=== PATIENT | female | born 1970 | race Caucasian/White ===

== ENCOUNTER 2022-10-10 06:28 | Day surgery (SDC) | payer BC, SELFPAY ==
[2022-10-09 13:15] VITALS: BMI 28.7
[2022-10-10] VITALS (8 sets, daily range): BP systolic 108–146; BP diastolic 55–86; PULSE 55–84; RESP 13–23; TEMP 36.1–37.1; O2SAT 93–97
[2022-10-10] MEDS: sodium chloride 0.9% 1,000 ML 30 ML IV (06:54)
--- NOTE | 2022-10-10 07:03 | ANES.PREANE2 ---
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 Operation Date: 10/10/22 07:50 Proposed Procedures p direct laryngoscopy and removal of vocal cord nodule 43391,J38.2(Not Applicable) - Prince Haskins MD Familial anesthetic complications: None Was Beta Kumar taken within 24 hours: N/A Was Clonidine taken within 24 hours: N/A Last intake: Intake Last Liquid Date 10/09/22 Last Liquid Time 21:00 Last Solid Date 10/09/22 Last Solid Time 18:00 Social No alcohol and No tobacco former smoker Exam alert, oriented x 3, clear to auscultation bilaterally and regular rate & rhythm Airway Mallampati: Class I Dentition: chipped (multiple chipped, including front tooth) GI Gastroesophageal Reflux Disease Anesthetic Plan ASA status: 2 Anesthesia: General Risk of > 500 ml blood loss (7ml/kg in children): No Medications/Allergies Home Medications Medication Instructions Recorded Confirmed Last Taken Type dexlansoprazole 30 mg 30 mg PO DAILY 08/27/22 10/10/22 10/10/22 06:00 History capsule,biphase delayed release (Dexilant) fluoxetine 20 mg capsule 20 mg PO DAILY 08/27/22 10/10/22 10/09/22 20:00 History oxybutynin chloride 5 mg tablet 5 mg PO DAILY 08/27/22 10/09/22 10/09/22 07:00 History trazodone 150 mg tablet 150 mg PO DAILY 08/27/22 10/10/22 10/09/22 21:00 History peg 3350-electrolytes 236 240 ml PO Q10M #4,000 mL 08/28/22 10/07/22 Unknown Rx gram-22.74 gram-6.74 gram-5.86 gram solution (Golytely) Allergies Allergy/AdvReac Type Severity Reaction Status Date / Time No Known Allergies Allergy Verified 10/10/22 06:40 Current Medications Generic Name Dose Route Start Last Admin Trade Name Freq PRN Reason Stop Dose Admin Sodium Chloride 1,000 mls @ 30 mls/hr 10/10/22 06:45 10/10/22 06:54 Sodium Chloride 0.9% IV 10/11/22 06:44 30 mls/hr .Q24H ROSEY Administration PFSH Anesthesia Medical History Hx of cataract bilateral and lens implants Surgical History Hx of arthroscopic knee surgery left knee Hx of colonoscopy with polypectomy Family History Mother Cancer colon cancer stage 4 Social History Smoking and tobacco status: former smoker Data Anesthesia Cardiac Studies: No Data to Display
[2022-10-10 07:10] LABS: Basophils # 0.1 10^3/uL (0.0-0.1); Basophils % 1.2 %; Eosinophils # 0.1 10^3/uL (0.0-0.8); Hematocrit 38.6 % (37.0-47.0); Hemoglobin 12.6 g/dL (11.5-15.3); Lymphocytes # 2.2 10^3/uL (0.8-4.8); Lymphocytes % 37.4 %; Mean Corpuscular HGB Conc 32.6 g/dL (30.0-36.0); Mean Corpuscular Hemoglobin 29.5 pg (28.0-34.0); Mean Corpuscular Volume 90.4 fl (81-99); Mean Platelet Volume 9.6 fL (7.4-10.4); Monocytes # 0.6 10^3/uL (0.2-0.9); Monocytes % 10.3 %; Neutrophils # 2.86 10^3/uL (1.8-7.7); Neutrophils % 49.8 %; Nucleated Red Blood Cells % 0 %; Platelet Count 328 10^3/cmm (130-400); Red Blood Count 4.27 10^6/uL (4.1-5.3); Red Cell Distribution Width 13.2 % (12.1-15.1); White Blood Count 5.8 10^3/uL (4.0-10.0)
--- NOTE | 2022-10-10 07:22 | W.PM.OPSUD ---
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
[2022-10-10 07:26] LABS: Anion Gap 12.3 (5-19); Blood Urea Nitrogen 17 mg/dL (6-20); Calcium 9.1 mg/dL (8.5-10.5); Carbon Dioxide 27 mmol/L (22-29); Chloride 107 mmol/L (98-107); Glomerular Filtration Rate 88.2 mL/min (90-130); Glucose 96 mg/dL (65-115); Osmolality Calculated 295 mOsm/kg (285-295); Potassium 4.3 mmol/L (3.5-5.1); Sodium 142 mmol/L (136-145)
[2022-10-10] MEDS: ceFAZolin 2,000 MG in sodium chloride 0.9% (plus) 50 ML 100 MG IV (07:33)
[2022-10-10] MEDS: EPINEPHrine 1 mg/mL INJ XX (07:56)
--- NOTE | 2022-10-10 08:26 | PM.OP ---
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 Only edema of left cord. Procedure done: Direct suspension microscopic laryngoscopy with excision of right true vocal cord nodule/stripping. Implants: No implants Specimens removed/disposition: Right true vocal cord mass and stripping Pathology: Right true vocal cord mass and stripping permanent section only Surgeon: Prince Haskins MD Anesthesia: General Estimated blood loss: 5 mL Complications: No complications encountered Findings: Patient in the office had chronic hoarseness with on flexible laryngoscopy a large right true vocal cord nodule with what appeared to be a smaller left true vocal cord nodule or indentation. Brief History: 52-year-old female patient has had chronic hoarseness for an extended period of time and on flexible laryngoscopy identified to have at least a right true vocal cord nodule which was very sizable. This was interfering with the cords abducting appropriately. Therefore the patient is being brought to the operating room to undergo direct suspension microscopic laryngoscopy and removal of this right cord nodule and if necessary stripping. If there is anything present on the left side that will also be addressed. The procedure its risks and complications were explained in detail. Informed consent was granted. It was also witnessed. Procedure: Description of procedure: The patient was placed on the operating table in the supine position. Adequate general endotracheal tube anesthesia was obtained. A timeout was accomplished identifying the patient date of plan procedure allergies fire risk and medications given. With all in agreement the procedure continued. The table was rotated 90 degrees. The head was dropped 15 degrees to the horizontal. Her eyes were taped shut and head drape was applied in usual fashion. A tooth guard was placed over her upper dentition. A small anterior commissure operating laryngoscope was then placed and suspended from a Parekh stand. Then with the microscope for visualization and manipulation with suction and forceps the right cord nodule was very obvious. It was too hard to even grasp with a classic cup forceps. Therefore using micro curved scissors curved to the left incision was created at the base of this lesion and dissected down. At this point it was obvious that the overlying tissue was not going to separate from this mass and therefore a more classic stripping was accomplished removing all abnormal appearing tissue. The left side was then evaluated and found to just have edema. No actual nodule present on the left side. Hemostasis was attained with cottonoids soaked in 1-1000 epinephrine. Then after removing that and suctioning an LTA was dispensed into the larynx for anesthetic on the cords and to help prevent excessive coughing postoperatively. The patient tolerated the procedure well had an estimated blood loss of 5 mL or less and arrived in recovery in stable condition.
--- NOTE | 2022-10-10 08:48 | SUR.PHASEI ---
0842 PT TO PACU AWAKE ALERT HOB AT 30 DEGREES PT ID BRACELET TO RT WRIST PT ID'D WITH 2 IDENTIFIERS, MONITOR SR WITH NO ECTOPY, IV TO LT HAND #20 PATENT 500ML NS UP AT KVO RATE PER GRAVITY, PT ON STRICT VOICE REST PT NODS HEAD YES AND NO, PT TEMP 97 PT GIVEN WARM BLANKETS X 4 , VSS RESPIRATIONS EVEN AND UNLABORED.
--- NOTE | 2022-10-10 08:56 | SUR.PHASEI ---
PT AWAKE ALERT GIVEN ICE CHIP PT TOLERATES WELL, PT GIVEN CLIPBOARD WITH PAPER AND PEN FOR COMMUNICATING.
--- NOTE | 2022-10-10 09:02 | SUR.PHASEI ---
PT AWAKE ALERT TAKING ICE CHIPS DENIES PAIN, VSS RESP EVEN AND UNLABORED.
[2022-10-10] MEDS: acetaminophen-codeine 300-30mg Tablet 2 TAB PO (09:35)
--- NOTE | 2022-10-10 12:24 | ANE.PACU2 ---
Inpatient post-anesthesia follow up: Airway intact: Yes Vital signs: Temperature 98 F Pulse Rate 64 Respiratory Rate 16 Blood Pressure 122/74 Pulse Oximetry 96 Oxygen Delivery Me thod Room Air Oxygen Flow Rate Fraction of Inspir ed Oxygen Hydration adequate: Yes Nausea and vomiting: No Pain level: 1 Mental status: Baseline
== END 2022-10-10 10:04 | disposition home or self-care (01) ==
PROVIDERS: Anesthesiology; PCP Nurse Practitioner Family; Visit Provider Otolaryngology
PROC: 0CJS8ZZ Inspection of Larynx, Via Natural or Artificial Opening Endoscopic (ICD-10-PCS; CPT 31541; principal; 2022-10-10 07:50)
DX: J38.2 Nodules of vocal cords (principal); R49.0 Dysphonia; K21.9 Gastro-esophageal reflux disease without esophagitis; F17.210 Nicotine dependence, cigarettes, uncomplicated
CPT/HCPCS: 31541; 36415; 80048; 85025; 88305; J0171; J0330; J0690; J1100; J2250; J2405; J2704; J3010; J7030

== ENCOUNTER 2022-10-25 07:15 | Day surgery (SDC) | payer BC, SELFPAY ==
[2022-10-24 08:04] VITALS: BMI 30.1
--- NOTE | 2022-10-25 07:14 | P.HP_ITS ---
Same Day Surgery H&P Indication for Procedure/HPI DATE OF PROCEDURE: October 25, 2022 CHIEF COMPLAINT/INDICATIONFOR SURGICAL PROCEDURE: I am here for colonoscopy PREOP DIAGNOSIS: Family history of colon cancer PLANNED PROCEDURE: Operation Date: 10/25/22 09:00 Proposed Procedures p Colonoscopy 54651,R19.4(Not Applicable) - Kam Palm MD 08/28/2022 This is a pleasant 52 years old female patient referred to my practice with change in bowel habits as she describes it as huge and heavy intermittently should have blood with stool.? She had a colonoscopy 4 years ago and had polyps.? Patient reports that that change in the caliber of the stool has been recent.? Reports history of her mom with colon cancer at age of 51.? Also patient does have persistent and worsening hoarseness as I did ask her about that during the clinical encounter.? She used to smoke but she stopped now.? Patient was seen before few years by an ENT provider and she does not recall any significant findings.? Except for her acid reflux and she has been getting treatment for that.? Denies any weight loss. Interim history 10-25-22 Patient comes today for colonoscopy ROS All systems have been reviewed negative except as for the above or per problem list. Medications/Allergies* Home Medications Medication Instructions Recorded Confirmed Type dexlansoprazole 30 mg 30 mg PO DAILY 08/27/22 10/24/22 History capsule,biphase delayed release (Dexilant) fluoxetine 20 mg capsule 20 mg PO DAILY 08/27/22 10/24/22 History oxybutynin chloride 5 mg tablet 5 mg PO DAILY 08/27/22 10/24/22 History trazodone 150 mg tablet 150 mg PO BEDTIME 08/27/22 10/24/22 History Allergies/Adverse Reactions Allergy/AdvReac Type Severity Reaction Status Date / Time No Known Allergies Allergy Verified 10/15/22 11:23 Pertinent History/Comorbid Conditions* Medical History (Updated 10/15/22 @ 11:43 by Prince Haskins MD) Hx of cataract bilateral and lens implants Surgical History (Updated 10/15/22 @ 11:40 by Prince Haskins MD) History of throat surgery Vocal cord nodule removal Hx of arthroscopic knee surgery left knee Hx of colonoscopy with polypectomy Family History (Updated 08/28/22 @ 10:57 by Janet Harrill, CT) Mother Cancer Mother colon cancer stage 4 Social History Smoking and tobacco status: former smoker Pertinent Exam Findings alert, oriented x 3, regular rate & rhythm and procedure specific exam findings (Abdominal exam nontender nondistended soft) Recommendations Surgery/Procedure today (Colonoscopy with possible biopsy) Coding Level of Care Code Acute Director Of Business Services for Marc Gruber
[2022-10-25 07:34] VITALS: BP 119/73; PULSE 54; RESP 18; TEMP 36.9; O2SAT 97
[2022-10-25] MEDS: sodium chloride 0.9% 1,000 ML 30 ML IV (07:46)
--- NOTE | 2022-10-25 07:51 | ANES.PREANE2 ---
Pre-Anesthetic Assessment Height/Weight: Height 1.75 m Weight 92.533 kg Temp Pulse Resp BP Pulse Ox O2 Del Method 98.4 F 54 L 18 119/73 97 10/25/22 07:34 10/25/22 07:34 10/25/22 07:34 10/25/22 07:34 10/25/22 07:34 10/25/22 07:34 Preop Diagnosis: Family history of colon cancer and personal history of colon polyps Operation Date: 10/25/22 09:00 Proposed Procedures p Colonoscopy 74390,R19.4(Not Applicable) - Kam Palm MD Familial anesthetic complications: NOne Was Beta Kumar taken within 24 hours: N/A Was Clonidine taken within 24 hours: N/A Last intake: Intake Last Liquid Date 10/24/22 Last Liquid Time 21:00 Last Solid Date 10/23/22 Last Solid Time 17:30 Social No alcohol and No tobacco former smoker Exam alert, oriented x 3, clear to auscultation bilaterally and regular rate & rhythm Airway Mallampati: Class I Dentition: chipped (multiple, including her front tooth) GI Gastroesophageal Reflux Disease Anesthetic Plan ASA status: 2 Anesthesia: MAC Risk of > 500 ml blood loss (7ml/kg in children): No Medications/Allergies Home Medications Medication Instructions Recorded Confirmed Last Taken Type dexlansoprazole 30 mg 30 mg PO DAILY 08/27/22 10/24/22 10/24/22 History capsule,biphase delayed release (Dexilant) fluoxetine 20 mg capsule 20 mg PO DAILY 08/27/22 10/24/22 10/24/22 History oxybutynin chloride 5 mg tablet 5 mg PO DAILY 08/27/22 10/24/22 10/24/22 History trazodone 150 mg tablet 150 mg PO BEDTIME 08/27/22 10/24/22 10/24/22 History Allergies Allergy/AdvReac Type Severity Reaction Status Date / Time No Known Allergies Allergy Verified 10/15/22 11:23 Current Medications Generic Name Dose Route Start Last Admin Trade Name Freq PRN Reason Stop Dose Admin Sodium Chloride 1,000 mls @ 30 mls/hr 10/25/22 07:30 10/25/22 07:46 Sodium Chloride 0.9% IV 30 mls/hr .Q24H ROSEY Administration PFSH Anesthesia Medical History Hx of cataract bilateral and lens implants Surgical History History of throat surgery Vocal cord nodule removal Hx of arthroscopic knee surgery left knee Hx of colonoscopy with polypectomy Family History Mother Cancer colon cancer stage 4 Social History Smoking and tobacco status: former smoker Data Anesthesia Cardiac Studies: No Data to Display
[2022-10-25 09:57] VITALS: BP 128/69; PULSE 56; RESP 16; TEMP 36.1; O2SAT 98
[2022-10-25 10:16] VITALS: BP 116/96; PULSE 51; RESP 18; O2SAT 94
--- NOTE | 2022-10-25 13:53 | ANE.PACU2 ---
Inpatient post-anesthesia follow up: Airway intact: Yes Vital signs: Temperature 97.0 F Pulse Rate 51 Respiratory Rate 18 Blood Pressure 116/96 Pulse Oximetry 94 Oxygen Delivery Me thod Room Air Oxygen Flow Rate 4 Fraction of Inspir ed Oxygen Hydration adequate: Yes Nausea and vomiting: No Pain level: 1 Mental status: Baseline
== END 2022-10-25 10:22 | disposition home or self-care (01) ==
PROVIDERS: PCP Nurse Practitioner Family; Visit Provider Surgery
PROC: 0DJD8ZZ Inspection of Lower Intestinal Tract, Via Natural or Artificial Opening Endoscopic (ICD-10-PCS; CPT 45378; principal; 2022-10-25 09:00)
DX: R19.4 Change in bowel habit (principal); Z80.0 Family history of malignant neoplasm of digestive organs; Z87.891 Personal history of nicotine dependence; D12.5 Benign neoplasm of sigmoid colon; D12.3 Benign neoplasm of transverse colon; K21.9 Gastro-esophageal reflux disease without esophagitis
CPT/HCPCS: 45380; 88305; J2704; J7030

== ENCOUNTER 2023-02-14 11:14 | Outpatient (CLI) | payer BC, SELFPAY ==
--- NOTE | 2023-02-14 11:36 | XR_ITS ---
WS: [id number] EXAMINATION: XR ribs RT mn 3V w CXR1V [id number] REASON FOR EXAM: Traumatic injury COMPARISON: None available. ORDER DATE: 02/14/2023 11:42 AM FINDINGS: Cortical outlines are intact. There is no sign of acute fracture change. Lungs are clear. There is no sign of pneumothorax. Cardiac and mediastinal outlines are unremarkable. XR/XR ribs RT mn 3V w CXR1V [id number] IMPRESSION: No sign of fracture.
== END 2023-02-14 11:15 | disposition home or self-care (01) ==
PROVIDERS: PCP Nurse Practitioner Family; Visit Provider Nurse Practitioner Family
DX: R07.81 Pleurodynia (principal)
CPT/HCPCS: 71101

== ENCOUNTER 2023-02-21 07:38 | Outpatient (CLI) | payer BC, SELFPAY ==
--- NOTE | 2023-02-21 07:50 | US_ITS ---
WS: [id number] RIGHT UPPER QUADRANT ULTRASOUND HISTORY: RUQ ABDOMINAL PAIN COMPARISON: None available. Liver: 16.6 cm in length. Normal size liver and echogenicity. No bile duct dilatation or mass. Portal Vein: Normal hepatopetal flow with monophasic waveform. Gallbladder: Normally distended gallbladder with numerous small stones along the dependent wall. No p ericholecystic fluid. CBD: 0.4 cm Pancreas: Normal size and echogenicity. Right kidney: 10.0 cm in length. Normal size and echogenicity. No hydronephrosis or mass. Aorta and IVC: Unremarkable abdominal aorta and IVC. No ascites. US/US abdomen limited [id number] IMPRESSION: 1. Cholelithiasis. No evidence for acute cholecystitis. 2. No bile duct dilatation.
== END 2023-02-21 07:39 | disposition home or self-care (01) ==
LOC: RAD 07:40
PROVIDERS: PCP Nurse Practitioner Family; Visit Provider Nurse Practitioner Family
DX: R10.11 Right upper quadrant pain (principal); K80.20 Calculus of gallbladder without cholecystitis without obstruction
CPT/HCPCS: 76705

== ENCOUNTER → 2025-08-17 09:57 | Outpatient (BNVA) | payer BC, SELFPAY | DX: Z76.89 Persons encountering health services in other specified circumstances (principal); K21.9 Gastro-esophageal reflux disease without esophagitis | CPT/HCPCS: 80053; 80061; 84443; 85025 ==